=== PATIENT | male | born 1985 | race Caucasian/White ===

== ENCOUNTER 2017-03-02 23:55 | Emergency (ER) | payer SELFPAY ==
[2017-03-03 00:52] LABS: eGFR (African) > 60; eGFR (Non-African) > 60
[2017-03-03 01:08] LABS: BASOPHILS % 0.9 (0.0-1.5); EOSINOPHILS % 2.4 % (0.0-6.8); MEAN CORPUSCULAR HEMOGLOBIN 31.6 pg (28.0-34.0); MEAN CORPUSCULAR VOLUME 92.7 fl (80.0-100.0); MONOCYTES % 5.9 % (0.0-11.0); NEUTROPHILS # 4.3 # k/uL (1.4-7.7)
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
[2017-03-03] MEDS: traMADol HCL 50 MG TABLET PO ONE (02:12)
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
[2017-03-03 04:48] VITALS: BP 121/73
== END 2017-03-03 02:15 | disposition home or self-care (01) ==
LOC: ED 23:55
DX: G44.209 Tension-type headache, unspecified, not intractable (principal); V89.2XXA Person injured in unspecified motor-vehicle accident, traffic, initial encounter; Y93.9 Activity, unspecified; Y99.9 Unspecified external cause status
CPT/HCPCS: 70450; 72125; 80053; 85025; 99283

== ENCOUNTER 2017-09-11 13:55 | Emergency (ER) | payer SELFPAY ==
[2017-09-11] MEDS ORDERED: MEPERIDINE HCL/PF 50 MG/ML DISP.SYRIN ONE (13:59)
[2017-09-11] MEDS ORDERED: MEPERIDINE HCL/PF 50 MG/ML DISP.SYRIN IM ONE (14:00)
--- NOTE | 2017-09-11 14:20 | ED Physician Documentation ---
Hand Injury - HISTORIAN Historian: patient - HPI Stated Complaint: Smashed R Hand Chief Complaint: Hand Injury Additional Information: dropped heavy steel I beam on his fingers , tore skin off pad of 3, subungal hematoma 4 Onset: just prior to arrival Where: work Severity: mild Duration: worse Context: blow, laceration, crush Location of Injury: L hand, L fingers Modifying Factors: pain on movement Further Comments: no - ROS CONST: no problems GI/: denies: problems urinating, nausea NEURO: none CVS/RESP: none EYES/ENT: none MS/SKIN/LYMPH: none - PAST HX Past History: Rt handed, other (multiple abd surgeries) Allergies/Adverse Reactions: Allergies Allergy/AdvReac Type Severity Reaction Status Date / Time No Known Drug Intolerances Allergy Verified 09/11/17 14:05 Home Medications: Ambulatory Orders Medication Instructions Recorded NK [NK] 03/03/17 - SOCIAL HX Smoking History: non-smoker Alcohol Use: occasionally Drug Use: marijuana - FAMILY HX Family History: none - VITAL SIGNS Vital Signs: Vital Signs Temp Pulse Resp BP Pulse Ox 98.3 F 84 22 161/100 98 09/11/17 13:55 09/11/17 13:55 09/11/17 13:55 09/11/17 13:55 09/11/17 13:55 - REVIEWED ASSESSMENTS Nursing Assessment Reviewed: Yes Vitals Reviewed: Yes Procedures Wound Location: upper extremity Wound Length: 3.5cm Wound's Depth, Shape: superficial Wound Explored: clean Anesthesia: Other (.5 % marcaine) Volume of Anesthetic: 7ml Number of Sutures: 0 (partial thickness tear of skin) Method of Drainage: nail cauterized Sterile Dressing Applied: No Finger Splint: No Progress: 2 nails tref, index and ring finger left ED Results Lab/Radiology - Radiology Radiology Impressions: neg fracture dislocation - Orders Orders: ED Orders Category Date Time Status FOOT 3 VIEWS OR MORE [RAD] Stat Exams 09/11/17 Ordered HAND XRAY [HAND 3 VIEWS OR MORE] [RAD] Stat Exams 09/11/17 Ordered Meperidine HCl/Pf [Demerol] Med 09/11/17 13:59 Discontinued 50 mg .ROUTE .STK-MED ONE Meperidine HCl/Pf [Demerol] Med 09/11/17 14:00 Discontinued 50 mg IM NOW ONE Hand Injury Physical Exam - Exam General Appearance: alert, mild distress Hand: other (skin tore off pad of 3rd L digit, subungal hematoma 4th L digit) Wrist: normal inspection Neuro: sensation nml, motor nml Vascular: no vascular compromise Tendons: tendon function nml Forearm/Elbow/Arm: uninjured above wrist Skin: warm/dry, normal color Head/ENT: nml inspection Neck/Back: nml inspection Resp/CVS: no resp. distress Abdomen: non-tender Discharge Clincal Impression: Crushing injury of left index finger, initial encounter, Crushing injury of left middle finger, initial encounter, Crushing injury of left ring finger, initial encounter, Subungual hematoma of left index finger, Subungual hematoma of left ring finger Laceration of left middle finger w/o foreign body w/o damage to nail Qualifiers: Encounter type: initial encounter Qualified Code(s): S61.213A - Laceration without foreign body of left middle finger without damage to nail, initial encounter Referrals: Tre Paz MD [Primary Care Provider] - 2 Days Condition: Stable Disposition: 01 HOME, SELF-CARE Decision to Admit: NO Date of Decison to Admit: 09/11/17 Decision Time: 15:27
[2017-09-11] MEDS ORDERED: BUPIVACAINE HCL/PF 2.5 MG/ML 10ML VIAL IV ONE (14:48)
[2017-09-11] MEDS ORDERED: BUPIVACAINE HCL/PF 5 MG/ML 10ML VIAL IV ONE (14:48)
--- NOTE | 2017-09-11 14:55 | Diagnostic Imaging Report ---
MICHAEL DOLL [facility] [address] [facility] [address] [address] Report Submission Date: Sep 11, 2017 2:45:29 PM [employer]YOR [employer] HEL[employer] Patient Study Name: HITESH TIJERINA Date: Sep 11, 2017 2:30:31 PM [employer] Modality Type: CR Gender: M Description: UPPER EXTREMITY : 87 Institution: [facility] Physician: MICHAEL DOLL Examination: Plain film hand History: Hand discomfort Comparison exams: None available Findings: 3 views the hand demonstrate normal cortical margins. No fracture. No dislocation. No soft tissue abnormality. Impression: No acute osseous abnormality. Electronically signed on Sep 11, 2017 2:45:29 PM SURVEYOR ROD HELPER by: Mehdi ESCALANTE
[2017-09-11 15:42] VITALS: BP 132/78
== END 2017-09-11 15:40 | disposition home or self-care (01) ==
LOC: ED 13:55
DX: S61.213A Laceration without foreign body of left middle finger without damage to nail, initial encounter (principal); X58.XXXA Exposure to other specified factors, initial encounter; Y93.9 Activity, unspecified; Y92.9 Unspecified place or not applicable; Y99.0 Civilian activity done for income or pay
CPT/HCPCS: 12002; 73130; 96372; 99283; J2175; J7030

== ENCOUNTER 2019-02-08 18:56 | Emergency (ER) | payer SELFPAY ==
[2019-02-22 17:48] LABS: BASOPHILS % 0.6 % (0.0-1.5); NEUTROPHILS # 5.2 # k/uL (1.4-7.7); eGFR (Non-African) > 60
--- NOTE | 2019-02-27 12:17 | Diagnostic Imaging Report ---
DONG ISAAC (WARD MAID) - ER [facility] [address] [facility] [address] [place], [place]. [address] Report Submission Date: Feb 08, 2019 7:37:40 PM CDT Patient Study Name: HITESH TIJERINA Date: Feb 08, 2019 7:15:21 PM CDT Modality Type: DX Gender: M Description: CHEST 2VIEW : 87 Institution: [facility] Physician: DONG ISAAC ([place] MA[place]) - ER PA AND LATERAL CHEST HISTORY: Short of breath COMPARISON: None PA and Lateral Chest dated February 08, 2019 demonstrates a normal cardiomediastinal silhouette. Pulmonary vascularity is normal. Lungs are clear. IMPRESSION: NO ACTIVE DISEASE. Electronically signed on Feb 08, 2019 7:37:40 PM CDT by: Elaine ESCALANTE
== END 2019-02-08 20:49 | disposition home or self-care (01) ==
LOC: ED 18:56
DX: T48.6X1A Poisoning by antiasthmatics, accidental (unintentional), initial encounter (principal); F41.9 Anxiety disorder, unspecified; E87.6 Hypokalemia; R94.5 Abnormal results of liver function studies
CPT/HCPCS: 36415; 71020; 80053; 80377; 84484; 85025; 94640; 99283; 99284; G0481; S1016